=== PATIENT | male | born 1995 | race Caucasian/White ===

== ENCOUNTER 2018-10-31 21:39 | Emergency (ER) | END 2018-10-31 23:52 | disposition home or self-care (01) ==

== ENCOUNTER 2019-01-25 18:47 | Inpatient (IN) | payer BC ==
[~2019-01-25] VITALS: Ht 177.8 cm; Wt 89.4 kg
[~2019-01-25 18:47] MED LIST: IBUP800T48 PO
[2019-01-25 19:36] VITALS: Ht 177.8 cm; Wt 89.4 kg
[2019-01-25] MEDS ORDERED: SOD CHLORIDE 0.9% 1,000 ML IV STA (23:23)
[2019-01-25] MEDS ORDERED: ONDANSETRON 4 MG INJ IV STA (23:23)
[2019-01-25] MEDS ORDERED: morphine 4 MG/ML VIAL IV STA (23:23)
[2019-01-26] VITALS (14 sets, daily range): BP systolic 113–140; BP diastolic 55–70; PULSE 63–110; RESP 17–27
[2019-01-26] MEDS ORDERED: HYDROmorphONE 0.5 MG/0.5 ML SYG IV STA (03:13)
[2019-01-26] MEDS ORDERED: ONDANSETRON 4 MG INJ IV STA (03:13)
[2019-01-26] MEDS ORDERED: SOD CHLORIDE 0.9% 1,000 ML IV STA (03:13)
--- NOTE | 2019-01-26 03:15 | ERD ---
ER Documentation Chief Complaint Chief Complaint abdominal pain x 2 days HPI 23-year-old male presents with right lower quadrant abdominal pain that began yesterday at around 11 AM. No nausea or vomiting or diarrhea. No fever. Pain is getting worse and is sharp. No testicular pain. No urinary symptoms. No medications have been taken. ROS All systems reviewed and are negative except as per history of present illness. Medications Home Meds Active Scripts Ibuprofen* (Motrin*) 800 Mg Tab, 800 MG PO Q6, #30 TAB Prov:YENIFER STEVENS PA-C 10/31/18 Allergies Allergies: Coded Allergies: No Known Drug Allergies (Verified Allergy, Mild, 03/24/13) PMhx/Soc Medical and Surgical Hx: pt denies Medical Hx, pt denies Surgical Hx History of Surgery: Yes (ORAL) Anesthesia Reaction: No Hx Neurological Disorder: No Hx Respiratory Disorders: No Hx Cardiac Disorders: No Hx Psychiatric Problems: No Hx Miscellaneous Medical Probl: No Hx Alcohol Use: No Hx Substance Use: No Hx Tobacco Use: No Smoking Status: Never smoker FmHx Family History: No diabetes Physical Exam Vitals Vital Signs Date Temp Pulse Resp B/P (MAP) Pulse Ox O2 O2 Flow FiO2 Time Delivery Rate 01/25/19 125/69 23:56 (87) 01/25/19 98.6 89 18 144/86 100 19:36 (105) Physical Exam INITIAL VITAL SIGNS: Reviewed by me GENERAL: Awake, alert and oriented x 4, well appearing, nontoxic, speaking in full sentences. No acute distress HEAD: Atraumatic NECK: Supple. No masses. Full range of motion. No meningismus. No midline tenderness. RESPIRATORY: Clear to auscultation bilaterally. Symmetric chest wall rise. No wheezing or rales. No accessory muscle use. CV: Regular rate and rhythm. No murmurs, rubs, or gallops. ABDOMEN: Soft, non-distended. Nontender. Negative Sodus. Positive McBurneys point tenderness. No CVA tenderness bilaterally. No guarding. No rebound. Result Diagram: 01/25/19 2816 01/25/19 2346 Results 24 hrs Laboratory Tests Test 01/25/19 23:46 White Blood Count 14.9 10^3/ul Red Blood Count 5.09 10^6/ul Hemoglobin 14.2 g/dl Hematocrit 42.3 % Mean Corpuscular Volume 83.1 fl Mean Corpuscular Hemoglobin 27.9 pg Mean Corpuscular Hemoglobin Concent 33.6 g/dl Red Cell Distribution Width 12.1 % Platelet Count 232 10^3/UL Mean Platelet Volume 10.0 fl Immature Granulocytes % 0.700 % Neutrophils % 76.7 % Lymphocytes % 13.2 % Monocytes % 8.2 % Eosinophils % 0.9 % Basophils % 0.3 % Nucleated Red Blood Cells % 0.0 /100WBC Immature Granulocytes # 0.110 10^3/ul Neutrophils # 11.4 10^3/ul Lymphocytes # 2.0 10^3/ul Monocytes # 1.2 10^3/ul Eosinophils # 0.1 10^3/ul Basophils # 0.1 10^3/ul Nucleated Red Blood Cells # 0.0 10^3/ul Urine Color YELLOW Urine Clarity CLEAR Urine pH 7.0 Urine Specific [place] 1.013 Urine Ketones NEGATIVE mg/dL Urine Nitrite NEGATIVE mg/dL Urine Bilirubin NEGATIVE mg/dL Urine Urobilinogen NEGATIVE mg/dL Urine Leukocyte Esterase NEGATIVE Serge/ul Urine Hemoglobin NEGATIVE mg/dL Urine Glucose NEGATIVE mg/dL Urine Total Protein NEGATIVE mg/dl Sodium Level 145 mmol/L Potassium Level 4.4 mmol/L Chloride Level 99 mmol/L Carbon Dioxide Level 33 mmol/L Anion Gap 13 Blood Urea Nitrogen 11 mg/dl Creatinine 0.82 mg/dl Est Glomerular Filtrat Rate mL/min > 60 mL/min Glucose Level 103 mg/dl Calcium Level 9.4 mg/dl Total Bilirubin 0.9 mg/dl Direct Bilirubin 0.00 mg/dl Indirect Bilirubin 0.9 mg/dl Aspartate Amino Transf (AST/SGOT) 29 IU/L Alanine Aminotransferase (ALT/SGPT) 31 IU/L Alkaline Phosphatase 74 IU/L Total Protein 8.0 g/dl Albumin 4.6 g/dl Globulin 3.40 g/dl Albumin/Globulin Ratio 1.35 Lipase 28 U/L Current Medications Medications Dose Sig/[facility] Start Time Status Last (Trade) Ordered Route PRN Stop Time Admin Dose Reason Admin Sodium 1,000 ml @ Q1H STAT 01/25/19 DC 01/25/19 Chloride 1,000 mls/hr IV 23:23 23:51 01/26/19 00:22 Morphine 4 mg ONCE STAT 01/25/19 DC 01/25/19 Sulfate IV 23:23 23:56 (morphine) 01/25/19 23:25 Ondansetron 4 mg ONCE STAT 01/25/19 DC 01/25/19 HCl (Zofran IV 23: 23:55 Inj) 01/25/19 23:25 Procedures/MDM The differential diagnosis includes but is not limited to appendicitis, cholelithiasis, cholecystitis, pancreatitis, hepatitis, gastritis, peptic ulcer disease, bowel obstruction, diverticulitis, renal disease including stones, torsion, AAA, pyelonephritis, and others. Labs and CT consistent with appendicitis. He was started on Zosyn and given pain medications. Will be admitted to [facility]. Departure Diagnosis: Primary Impression: Appendicitis Condition: YUMIKO Nunez PA-C Jan 26, 2019 03:15
[2019-01-26] MEDS ORDERED: PIPER-TAZO 3.375 GM IV (PMX) 100 ML IVPB ONE (03:30)
[2019-01-26] MEDS ORDERED: BISACODYL (EC) 5 MG TAB PO PRN (06:00)
[2019-01-26] MEDS ORDERED: NACL 0.9% 3 ML SYG IV SCH (06:00)
[2019-01-26] MEDS: PIPER-TAZO 3.375 GM IV (PMX) 100 ML IVPB SCH ×3 (06:00→18:00)
[2019-01-26] MEDS ORDERED: ONDANSETRON 4 MG INJ IV PRN ×2 (06:00→19:30)
[2019-01-26] MEDS ORDERED: DOCUSATE SODIUM 100 MG CAP PO PRN (06:00)
[2019-01-26] MEDS ORDERED: ACETAMINOPHEN 325 MG TAB PO PRN ×2 (06:00→19:30)
[2019-01-26] MEDS: SOD CHLORIDE 0.9% 1,000 ML IV SCH ×2 (06:11→15:44)
[2019-01-26] MEDS: morphine 2 MG INJ IV PRN ×3 (06:12→15:55)
--- NOTE | 2019-01-26 06:38 | HP ---
Date/Time of Note Date/Time of Note DATE: 01/26/19 TIME: 06:33 Assessment/Plan VTE Prophylaxis SCD applied (from Nsg): Yes Pharmacological prophylaxis: NA/contraindicated Pharm contraindication: low risk/ambulating Lines/Catheters IV Catheter Type (from Nrsg): Saline Lock Assessment/Plan Hospital Course This is a 23-year-old male being admitted to the [facility] floor for: #1 acute appendicitis: Preliminary CT read as per the ED physician showed acute appendicitis, await official read. At the current time we will keep the patient n.p.o., IV fluid hydration with normal saline Zofran for nausea, morphine for pain. Zosyn IV every 6 hours. General surgery has already been consul eliel. #2 DVT GI prophylaxis: SCDs, no GI prophylaxis indicated Further treatment strategy will be implemented as per the clinical course. Result Diagram: 01/25/19 2346 01/25/19 2346 Results 24hrs Laboratory Tests Test 01/25/19 23:46 White Blood Count 14.9 H Red Blood Count 5.09 Hemoglobin 14.2 Hematocrit 42.3 Mean Corpuscular Volume 83.1 Mean Corpuscular Hemoglobin 27.9 L Mean Corpuscular Hemoglobin Concent 33.6 Red Cell Distribution Width 12.1 Platelet Count 232 Mean Platelet Volume 10.0 Immature Granulocytes % 0.700 H Neutrophils % 76.7 Lymphocytes % 13.2 L Monocytes % 8.2 Eosinophils % 0.9 Basophils % 0.3 Nucleated Red Blood Cells % 0.0 Immature Granulocytes # 0.110 H Neutrophils # 11.4 H Lymphocytes # 2.0 Monocytes # 1.2 H Eosinophils # 0.1 Basophils # 0.1 Nucleated Red Blood Cells # 0.0 Urine Color YELLOW Urine Clarity CLEAR Urine pH 7.0 Urine Specific [place] 1.013 Urine Ketones NEGATIVE Urine Nitrite NEGATIVE Urine Bilirubin NEGATIVE Urine Urobilinogen NEGATIVE Urine Leukocyte Esterase NEGATIVE Urine Hemoglobin NEGATIVE Urine Glucose NEGATIVE Urine Total Protein NEGATIVE Sodium Level 145 H Potassium Level 4.4 Chloride Level 99 Carbon Dioxide Level 33 H Anion Gap 13 Blood Urea Nitrogen 11 Creatinine 0.82 Est Glomerular Filtrat Rate mL/min > 60 Glucose Level 103 Calcium Level 9.4 Total Bilirubin 0.9 Direct Bilirubin 0.00 Indirect Bilirubin 0.9 Aspartate Amino Transf (AST/SGOT) 29 Alanine Aminotransferase (ALT/SGPT) 31 Alkaline Phosphatase 74 Total Protein 8.0 Albumin 4.6 Globulin 3.40 H Albumin/Globulin Ratio 1.35 Lipase 28 HPI/ROS Admit Date/Time Admit Date/Time Hx of Present Illness Chief complaint: Right lower quadrant abdominal pain times 2 days This is a 23-year-old male with no past medical history who presents with right lower quadrant abdominal pain that began Friday around 11 AM. no nausea or vomiting or diarrhea. No fever. Pain is getting worse and is sharp. No testicular pain. No urinary symptoms. No medications have been taken. Preliminary read as per the ED physician documentation showed acute appendicitis and the CT abdomen pelvis, still awaiting official read., Allergies: NKDA Medications: None ROS Const: As per HPI Eyes : No pain discharge or redness or change in visual acuity ENT: No pain, sore throat, congestion, congestion, dysphagia or discharge Respiratory: No shortness of breath, cough, sputum, wheezing, or pleuritic pain Cardiovascular: No chest pain, palpitation, PND, or edema GI : As per HPI Genitourinary: No dysuria, hematuria, flank pain , discharge or CVA tenderness Musculoskeletal: No joint pain, back pain, neck pain, restricted range of motion in neck or joints Skin: No rash, bruising or hives Neuro: No headache, dizziness, syncope, seizure, focal weakness Endocrine: No polyuria, polydipsia, temperature intolerance Psych: No hallucination, depression, anxiety or suicidal ideation PMH/Family/Social Past Medical History Medical History: no pertinent history Medications Current Medications Sodium Chloride 1,000 ml @ 100 mls/hr Q10H IV Last administered on 01/26/19at 06:11; Admin Dose 100 MLS/HR; Start 01/26/19 at 05:44 IV Flush (NS 3 ml) 3 ml PER PROTOCOL IV ; Start 01/26/19 at 06:00 Ondansetron HCl (Zofran Inj) 4 mg Q6H PRN IV NAUSEA/VOMITING; Start 01/26/19 at 06:00 Acetaminophen (Tylenol Tab) 650 mg Q6H PRN PO .PAIN 1-3 OR TEMP; Start 01/26/19 at 06:00 Morphine Sulfate (morphine) 4 mg Q4H PRN IV .SEVERE PAIN 7-10 Last administered on 01/26/19at 06:12; Admin Dose 4 MG; Start 01/26/19 at 06:00 Docusate Sodium (Colace) 100 mg Q12H PRN PO .CONSTIPATION; Start 01/26/19 at 06:00 Bisacodyl (Dulcolax) 5 mg DAILY PRN PO .CONSTIPATION; Start 01/26/19 at 06:00 Piperacillin Sod/ Tazobactam Sod 100 ml @ 200 mls/hr Q6 IVPB ; Start 01/26/19 at 06:00 Coded Allergies: No Known Drug Allergies (Verified Allergy, Mild, 03/24/13) Past Surgical History Past Surgical Hx: no surgical history Family History Significant Family History: no pertinent family hx Social History Alcohol Use: none Smoking Status: Never smoker Drug Use: none Exam/Review of Systems Vital Signs Vitals Vital Signs Date Temp Pulse Resp B/P (MAP) Pulse Ox O2 O2 Flow FiO2 Time Delivery Rate 01/26/19 98.7 79 19 121/69 100 Room Air 05:38 (86) Exam Exam General: patient is currently lying in bed in mild distress from abdominal pain HEENT: Atraumatic, normocephalic. The pupils are equal, round and reactive. Extraocular motor are intact Neck: Supple with full range of motion. No rigidity or meningismus Chest: Nontender Lungs: Clear to auscultation bilaterally no crackles rales or wheezing Heart: Normal S1-S2, Regular rhythm and rate. No murmur, S3, or S4 Abdomen: Soft , tender right lower quadrant, positive McBurney's point tenderness nondistended , bowel sounds are present. No guarding no rebound tenderness , No masses or organomegaly. No costovertebral temporal angle mass Extremities: Normal to inspection, no edema no cyanosis Neurologic: Normal mental status, speech normal, cranial nerves II through XII are intact, motor and sensory are intact, SHWETA ALTAMIRANO Jan 26, 2019 06:37
[2019-01-26] MEDS ORDERED: NEOSTIGMINE 10 MG INJ ONE (07:00)
--- NOTE | 2019-01-26 10:22 | PREAC ---
Date/Time of Note Date/Time of Note DATE: 01/26/19 TIME: 10:20 Anesthesia Eval and Record Evaluation Time Pre-Procedure Interview DATE: 01/26/19 TIME: 10:20 Age 23 Sex male NPO: 8 hrs Preoperative diagnosis acute appendicitis Planned procedure laparoscopic possible open appendectomy Past Medical History Past Medical History: Includes Cardio: Other (hx chest pain 2017, cardiac etiology was ruled out, dx with costochondritis, responded well to toradol in ER.) Surgery & Anesthesia Issues No known issue (neg pshx) Meds Anticoagulation: No Beta Edward within 24 hr: No Reason Beta Edward not given: Pt. not on B-Edward Active Scripts Ibuprofen* (Motrin*) 800 Mg Tab, 800 MG PO Q6, #30 TAB Prov:YENIFER STEVENS PA-C 10/31/18 Current Medications Sodium Chloride 1,000 ml @ 100 mls/hr Q10H IV Last administered on 01/26/19at 06:11; Admin Dose 100 MLS/HR; Start 01/26/19 at 05:44 IV Flush (NS 3 ml) 3 ml PER PROTOCOL IV ; Start 01/26/19 at 06:00 Ondansetron HCl (Zofran Inj) 4 mg Q6H PRN IV NAUSEA/VOMITING; Start 01/26/19 at 06:00 Acetaminophen (Tylenol Tab) 650 mg Q6H PRN PO .PAIN 1-3 OR TEMP; Start 01/26/19 at 06:00 Morphine Sulfate (morphine) 4 mg Q4H PRN IV .SEVERE PAIN 7-10 Last administered on 01/26/19at 09:45; Admin Dose 4 MG; Start 01/26/19 at 06:00 Docusate Sodium (Colace) 100 mg Q12H PRN PO .CONSTIPATION; Start 01/26/19 at 06:00 Bisacodyl (Dulcolax) 5 mg DAILY PRN PO .CONSTIPATION; Start 01/26/19 at 06:00 Piperacillin Sod/ Tazobactam Sod 100 ml @ 200 mls/hr Q6 IVPB ; Start 01/26/19 at 06:00 Meds reviewed: Yes Allergies Coded Allergies: No Known Drug Allergies (Verified Allergy, Mild, 03/24/13) Allergies Reviewed: Yes Labs/Studies Labs Reviewed: Reviewed by anesthesiologist Result Diagram: 01/25/19 7926 01/25/19 2346 Laboratory Tests 01/25/19 23:46 test: N/A Pre-procedure Exam Last vitals Vital Signs Date Temp Pulse Resp B/P (MAP) Pulse Ox O2 O2 Flow FiO2 Time Delivery Rate 01/26/19 97.7 70 119/70 97 Room Air 08:06 (86) 01/26/19 05:38 Airway: Adequate mouth opening, Adequate thyromental dist Mallampati: Mallampati II Teeth: Normal Lung: Normal Heart: Normal ASA Physical Status ASA physical status: 1 Emergency: E Planned Anesthetic General/MAC: ETT Nerve block: TAP (bilateral) Planned Pain Management Single shot nerve block, Parenteral pain med Pre-operative Attestations Prior to commencing anesthesia and surgery, the patient was re-evaluated, there was verification of: *The patient's identity *The results of appropriate recent lab work and preoperative vital signs *The above evaluation not changing prior to induction *Anesthetic plan, risk benefits, alternative and complications discussed with patient/family; questions answered; patient/family understands, accepts and wishes to proceed. ALO ERIC Jan 26, 2019 10:22
--- NOTE | 2019-01-26 11:38 | PN ---
Date/Time of Note Date/Time of Note DATE: 01/26/19 TIME: 11:36 Assessment/Plan VTE Prophylaxis Risk score (from Ns)>0 risk: 1 SCD applied (from Ns): Yes Pharmacological prophylaxis: NA/contraindicated Pharm contraindication: low risk/ambulating Lines/Catheters IV Catheter Type (from Nrsg): Peripheral IV Assessment/Plan Hospital Course S: still with abd pain O: Constitutional: was sleeping but arousable Head: atraumatic, normocephalic Neck: non-tender, supple Respiratory: clear to auscultation Cardiovascular: regular rate and rhythm Gastrointestinal: S/ milled rubber tender diffusely / ND / +BS Extremities: no edema, good radial pulses assessment and plan: 23-year-old male being admitted to the [facility] floor for: #1 acute appendicitis: surgical intervention planned for 3-4pm today, continue NPO, IVF and supportive care #2 DVT GI prophylaxis: SCDs, no GI prophylaxis indicated Further treatment strategy will be implemented as per the clinical course. Result Diagram: 01/25/19 2346 01/25/19 2346 Results 24hrs Laboratory Tests Test 01/25/19 23:46 White Blood Count 14.9 H Red Blood Count 5.09 Hemoglobin 14.2 Hematocrit 42.3 Mean Corpuscular Volume 83.1 Mean Corpuscular Hemoglobin 27.9 L Mean Corpuscular Hemoglobin Concent 33.6 Red Cell Distribution Width 12.1 Platelet Count 232 Mean Platelet Volume 10.0 Immature Granulocytes % 0.700 H Neutrophils % 76.7 Lymphocytes % 13.2 L Monocytes % 8.2 Eosinophils % 0.9 Basophils % 0.3 Nucleated Red Blood Cells % 0.0 Immature Granulocytes # 0.110 H Neutrophils # 11.4 H Lymphocytes # 2.0 Monocytes # 1.2 H Eosinophils # 0.1 Basophils # 0.1 Nucleated Red Blood Cells # 0.0 Urine Color YELLOW Urine Clarity CLEAR Urine pH 7.0 Urine Specific [place] 1.013 Urine Ketones NEGATIVE Urine Nitrite NEGATIVE Urine Bilirubin NEGATIVE Urine Urobilinogen NEGATIVE Urine Leukocyte Esterase NEGATIVE Urine Hemoglobin NEGATIVE Urine Glucose NEGATIVE Urine Total Protein NEGATIVE Sodium Level 145 H Potassium Level 4.4 Chloride Level 99 Carbon Dioxide Level 33 H Anion Gap 13 Blood Urea Nitrogen 11 Creatinine 0.82 Est Glomerular Filtrat Rate mL/min > 60 Glucose Level 103 Calcium Level 9.4 Total Bilirubin 0.9 Direct Bilirubin 0.00 Indirect Bilirubin 0.9 Aspartate Amino Transf (AST/SGOT) 29 Alanine Aminotransferase (ALT/SGPT) 31 Alkaline Phosphatase 74 Total Protein 8.0 Albumin 4.6 Globulin 3.40 H Albumin/Globulin Ratio 1.35 Lipase 28 Exam/Review of Systems Exam Vitals Vital Signs Date Temp Pulse Resp B/P (MAP) Pulse Ox O2 O2 Flow FiO2 Time Delivery Rate 01/26/19 97.7 70 119/70 97 Room Air 08:06 (86) 01/26/19 19 05:38 Results Results 24hrs Laboratory Tests Test 01/25/19 23:46 White Blood Count 14.9 H Red Blood Count 5.09 Hemoglobin 14.2 Hematocrit 42.3 Mean Corpuscular Volume 83.1 Mean Corpuscular Hemoglobin 27.9 L Mean Corpuscular Hemoglobin Concent 33.6 Red Cell Distribution Width 12.1 Platelet Count 232 Mean Platelet Volume 10.0 Immature Granulocytes % 0.700 H Neutrophils % 76.7 Lymphocytes % 13.2 L Monocytes % 8.2 Eosinophils % 0.9 Basophils % 0.3 Nucleated Red Blood Cells % 0.0 Immature Granulocytes # 0.110 H Neutrophils # 11.4 H Lymphocytes # 2.0 Monocytes # 1.2 H Eosinophils # 0.1 Basophils # 0.1 Nucleated Red Blood Cells # 0.0 Urine Color YELLOW Urine Clarity CLEAR Urine pH 7.0 Urine Specific [place] 1.013 Urine Ketones NEGATIVE Urine Nitrite NEGATIVE Urine Bilirubin NEGATIVE Urine Urobilinogen NEGATIVE Urine Leukocyte Esterase NEGATIVE Urine Hemoglobin NEGATIVE Urine Glucose NEGATIVE Urine Total Protein NEGATIVE Sodium Level 145 H Potassium Level 4.4 Chloride Level 99 Carbon Dioxide Level 33 H Anion Gap 13 Blood Urea Nitrogen 11 Creatinine 0.82 Est Glomerular Filtrat Rate mL/min > 60 Glucose Level 103 Calcium Level 9.4 Total Bilirubin 0.9 Direct Bilirubin 0.00 Indirect Bilirubin 0.9 Aspartate Amino Transf (AST/SGOT) 29 Alanine Aminotransferase (ALT/SGPT) 31 Alkaline Phosphatase 74 Total Protein 8.0 Albumin 4.6 Globulin 3.40 H Albumin/Globulin Ratio 1.35 Lipase 28 Medications Medication Current Medications Sodium Chloride 1,000 ml @ 100 mls/hr Q10H IV Last administered on 01/26/19at 06:11; Admin Dose 100 MLS/HR; Start 01/26/19 at 05:44 IV Flush (NS 3 ml) 3 ml PER PROTOCOL IV ; Start 01/26/19 at 06:00 Ondansetron HCl (Zofran Inj) 4 mg Q6H PRN IV NAUSEA/VOMITING; Start 01/26/19 at 06:00 Acetaminophen (Tylenol Tab) 650 mg Q6H PRN PO .PAIN 1-3 OR TEMP; Start 01/26/19 at 06:00 Morphine Sulfate (morphine) 4 mg Q4H PRN IV .SEVERE PAIN 7-10 Last administered on 01/26/19at 09:45; Admin Dose 4 MG; Start 01/26/19 at 06:00 Docusate Sodium (Colace) 100 mg Q12H PRN PO .CONSTIPATION; Start 01/26/19 at 06:00 Bisacodyl (Dulcolax) 5 mg DAILY PRN PO .CONSTIPATION; Start 01/26/19 at 06:00 Piperacillin Sod/ Tazobactam Sod 100 ml @ 200 mls/hr Q6 IVPB Last administered on 01/26/19at 11:35; Admin Dose 200 MLS/HR; Start 01/26/19 at 06:00 MAC CHAN Jan 26, 2019 11:38
--- NOTE | 2019-01-26 17:18 | CONS ---
Assessment/Plan Assessment/Plan Problems: (1) Appendicitis Status: Acute Qualifiers: Assessment/Plan (Daily) 23-year-old otherwise healthy male presents with clinical picture of acute appendicitis. Patient is consented for laparoscopic possible open appendectomy. We discussed risk and benefits we discussed possible complications and and side effects. We discussed possibility of infection abscess perforation injury to other organs bleeding or infection. Patient understands risk and benefits wishes to proceed. Consultation Date/Type/Reason Admit Date/Time Date of Consultation: Jan 26, 2019 Type of Consult Surgical Reason for Consultation Abdominal pain possible appendicitis Date/Time of Note DATE: 01/26/19 TIME: 17:13 Hx of Present Illness Otherwise healthy 23-year-old male started to experience periumbilical pain 2 days ago in the morning. The pain subsequently increased in nature and focused in the right lower quadrant. Patient was admitted through emergency room where he was found to have elevated white count up to 14,[address] scan confirmed acute appendicitis. Denies chills recent travel diarrhea urinary symptoms. Constitutional: no complaints, improved Eyes: no complaints ENT: no complaints Respiratory: no complaints Cardiovascular: no complaints Gastrointestinal: no complaints, pain, decreased appetite, nausea Genitourinary: no complaints Musculoskeletal: no complaints Skin: no complaints Neurologic: no complaints Endocrine: no complaints Lymphatic: no complaints Psychological: no complaints, nl mood/affect Immunologic: no complaints Past Medical History Medical History: no pertinent history Home Meds Active Scripts Ibuprofen* (Motrin*) 800 Mg Tab, 800 MG PO Q6, #30 TAB Prov:YENIFER STEVENS PA-C 10/31/18 Medications Current Medications Sodium Chloride 1,000 ml @ 100 mls/hr Q10H IV Last administered on 01/26/19at 06:11; Admin Dose 100 MLS/HR; Start 01/26/19 at 05:44 IV Flush (NS 3 ml) 3 ml PER PROTOCOL IV ; Start 01/26/19 at 06:00 Ondansetron HCl (Zofran Inj) 4 mg Q6H PRN IV NAUSEA/VOMITING; Start 01/26/19 at 06:00 Acetaminophen (Tylenol Tab) 650 mg Q6H PRN PO .PAIN 1-3 OR TEMP; Start 01/26/19 at 06:00 Morphine Sulfate (morphine) 4 mg Q4H PRN IV .SEVERE PAIN 7-10 Last administered on 01/26/19at 15:55; Admin Dose 4 MG; Start 01/26/19 at 06:00 Docusate Sodium (Colace) 100 mg Q12H PRN PO .CONSTIPATION; Start 01/26/19 at 06:00 Bisacodyl (Dulcolax) 5 mg DAILY PRN PO .CONSTIPATION; Start 01/26/19 at 06:00 Piperacillin Sod/ Tazobactam Sod 100 ml @ 200 mls/hr Q6 IVPB Last administered on 01/26/19at 11:35; Admin Dose 200 MLS/HR; Start 01/26/19 at 06:00 Allergies: Coded Allergies: No Known Drug Allergies (Verified Allergy, Mild, 03/24/13) Past Surgical History Past Surgical Hx: no surgical history Family History Significant Family History: no pertinent family hx Social History Alcohol Use: none Smoking Status: Never smoker Drug Use: none Exam/Review of Systems Exam Vitals Vital Signs Date Temp Pulse Resp B/P (MAP) Pulse Ox O2 O2 Flow FiO2 Time Delivery Rate 01/26/19 99.5 86 18 115/55 97 Room Air 14:43 (75) Constitutional: alert, oriented, well developed Psych: no complaints, nl mood/affect Head: normocephalic, atraumatic Eyes: nl conjunctiva, EOMI, nl lids, nl sclera, PERRL ENMT: nl external ears & nose, nl lips & teeth, nl nasal mucosa & septum Neck: supple, non-tender Respiratory: clear to auscultation, normal air movement Cardiovascular: regular rate and rhythm, nl pulses Gastrointestinal: rebound or guarding (RLQ), tender (RLQ), other (Positive Rovsing sign) Musculoskeletal: nl extremities to inspection, nl gait and stance Extremities: normal pulses Neurological: LICENSED ACUPUNCTURIST II-XII intact, nl mental status, nl speech, nl strength Skin: nl turgor; No rash or lesions Lymph: nl lymph nodes Results Result Diagram: 01/25/19 2346 01/25/19 2346 Results 24hrs Laboratory Tests Test 01/25/19 23:46 White Blood Count 14.9 H Red Blood Count 5.09 Hemoglobin 14.2 Hematocrit 42.3 Mean Corpuscular Volume 83.1 Mean Corpuscular Hemoglobin 27.9 L Mean Corpuscular Hemoglobin Concent 33.6 Red Cell Distribution Width 12.1 Platelet Count 232 Mean Platelet Volume 10.0 Immature Granulocytes % 0.700 H Neutrophils % 76.7 Lymphocytes % 13.2 L Monocytes % 8.2 Eosinophils % 0.9 Basophils % 0.3 Nucleated Red Blood Cells % 0.0 Immature Granulocytes # 0.110 H Neutrophils # 11.4 H Lymphocytes # 2.0 Monocytes # 1.2 H Eosinophils # 0.1 Basophils # 0.1 Nucleated Red Blood Cells # 0.0 Urine Color YELLOW Urine Clarity CLEAR Urine pH 7.0 Urine Specific [place] 1.013 Urine Ketones NEGATIVE Urine Nitrite NEGATIVE Urine Bilirubin NEGATIVE Urine Urobilinogen NEGATIVE Urine Leukocyte Esterase NEGATIVE Urine Hemoglobin NEGATIVE Urine Glucose NEGATIVE Urine Total Protein NEGATIVE Sodium Level 145 H Potassium Level 4.4 Chloride Level 99 Carbon Dioxide Level 33 H Anion Gap 13 Blood Urea Nitrogen 11 Creatinine 0.82 Est Glomerular Filtrat Rate mL/min > 60 Glucose Level 103 Calcium Level 9.4 Total Bilirubin 0.9 Direct Bilirubin 0.00 Indirect Bilirubin 0.9 Aspartate Amino Transf (AST/SGOT) 29 Alanine Aminotransferase (ALT/SGPT) 31 Alkaline Phosphatase 74 Total Protein 8.0 Albumin 4.6 Globulin 3.40 H Albumin/Globulin Ratio 1.35 Lipase 28 Medications Medication Current Medications Sodium Chloride 1,000 ml @ 100 mls/hr Q10H IV Last administered on 01/26/19at 06:11; Admin Dose 100 MLS/HR; Start 01/26/19 at 05:44 IV Flush (NS 3 ml) 3 ml PER PROTOCOL IV ; Start 01/26/19 at 06:00 Ondansetron HCl (Zofran Inj) 4 mg Q6H PRN IV NAUSEA/VOMITING; Start 01/26/19 at 06:00 Acetaminophen (Tylenol Tab) 650 mg Q6H PRN PO .PAIN 1-3 OR TEMP; Start 01/26/19 at 06:00 Morphine Sulfate (morphine) 4 mg Q4H PRN IV .SEVERE PAIN 7-10 Last administered on 01/26/19at 15:55; Admin Dose 4 MG; Start 01/26/19 at 06:00 Docusate Sodium (Colace) 100 mg Q12H PRN PO .CONSTIPATION; Start 01/26/19 at 06:00 Bisacodyl (Dulcolax) 5 mg DAILY PRN PO .CONSTIPATION; Start 01/26/19 at 06:00 Piperacillin Sod/ Tazobactam Sod 100 ml @ 200 mls/hr Q6 IVPB Last administered on 01/26/19at 11:35; Admin Dose 200 MLS/HR; Start 01/26/19 at 06:00 TRENA HOFFMANN MD Jan 26, 2019 17:18
[2019-01-26] MEDS ORDERED: ROCURONIUM 50 MG INJ ONE (17:40)
[2019-01-26] MEDS ORDERED: GLYCOPYRROLATE 0.4 MG INJ ONE (17:40)
[2019-01-26] MEDS ORDERED: PROPOFOL 20 ML ONE (17:40)
[2019-01-26] MEDS ORDERED: CEFAZOLIN 1 GM INJ ONE (17:40)
[2019-01-26] MEDS ORDERED: MIDAZOLAM 1 MG/ML 2 ML INJ ONE (17:42)
[2019-01-26] MEDS ORDERED: ONDANSETRON 4 MG INJ ONE (17:43)
[2019-01-26] MEDS ORDERED: FENTAnyl 50 MCG/ML VIAL ONE (17:43)
[2019-01-26] MEDS ORDERED: DEXAMETHASONE 4 MG/ML 5 ML INJ ONE (17:43)
[2019-01-26] MEDS ORDERED: BUPIVACAINE 0.5%/EPI (SDV) 30 ML INJ ONE (17:58)
[2019-01-26] MEDS ORDERED: LIDOCAINE 1% (MPF) 30 ML INJ ONE (17:58)
--- NOTE | 2019-01-26 18:53 | PAC ---
Date/Time of Note Date/Time of Note DATE: 01/26/19 TIME: 18:53 Post-Anesthesia Notes Post-Anesthesia Note Last documented vital signs Vital Signs Date Temp Pulse Resp B/P (MAP) Pulse Ox O2 O2 Flow FiO2 Time Delivery Rate 01/26/19 99.5 86 18 115/55 97 Room Air 14:43 (75) Activity: WNL Respiratory function: WNL Cardiovascular function: WNL Mental status: Baseline Pain reasonably controlled: Yes Hydration appropriate: Yes Nausea/Vomiting absent: Yes Matty Gamez M.D. Jan 26, 2019 18:53
--- NOTE | 2019-01-26 19:16 | OPR ---
Date/Time of Note Date/Time of Note DATE: 01/26/19 TIME: 19:13 Operative Report Procedure Date: Jan 26, 2019 Preoperative Diagnosis Acute appendicitis Postoperative Diagnosis Acute appendicitis Operation/Procedure Performed Laparoscopic appendectomy Surgeon see signature line Caramel Cutter Machine None Anesthesia Type: general Estimated Blood Loss: minimal Transfusion none Specimen Appendix Grafts/Implants none Complications none Pt Condition Post Procedure: stable Indications Acute appendicitis Procedure Description Patient was brought to the operating room positioned supine general endotracheal anesthesia was induced. The abdomen was prepped and draped in usual sterile patient. Patient was on antibiotics previously. Veress needle was placed in the left subcostal position and the abdomen was insufflated with CO2 up to 15 mmHg. 5 mm trocars were placed in the midline went just below the umbilicus the other one B midway between the umbilicus and the pubis. A 12 mm trocar was placed above the pubic hairline. The appendix was dissected off the omentum. A window was created that measure of the appendix close to the base. The appendix was divided using 35 mm vascular endoscopic stapler. The mesentery was divided using the same stapler with white loads. Hemostasis was confirmed. After that the appendix was placed in a specimen bag and retrieved through the 12 mm trocar site. Abdomen was desufflated all the trocars were removed. A 12 mm trocar was closed in 2 layers using 0 Vicryl for the fascia and 3-0 Monocryl to the skin. The 5 mm trocars were closed using 4-0 Monocryl to the skin. Instrument and sponge counts were correct x2. Patient was extubated transferred to recovery room in stable condition TRENA HOFFMANN MD Jan 26, 2019 19:16
[2019-01-26] MEDS ORDERED: KETOROLAC 30 MG INJ IV PRN (19:30)
[2019-01-26] MEDS ORDERED: IBUPROFEN 600 MG TAB PO PRN (19:30)
[2019-01-26] MEDS ORDERED: DIPHENHYDRAMINE 50 MG INJ IV PRN (19:30)
[2019-01-26] MEDS ORDERED: HYDROCODONE/APAP (5/325) TAB PO PRN (19:30)
[2019-01-26] MEDS: D5W-0.45 NACL + KCL 20 MEQ 1,000 ML IV SCH (20:04)
[2019-01-27] MEDS: SOD CHLORIDE 0.9% 1,000 ML IV SCH ×2 (01:03→11:32)
[2019-01-27] MEDS: PIPER-TAZO 3.375 GM IV (PMX) 100 ML IVPB SCH ×3 (01:09→12:51)
[2019-01-27 02:39] VITALS: BP 122/64; PULSE 85; RESP 18
[2019-01-27] MEDS: D5W-0.45 NACL + KCL 20 MEQ 1,000 ML IV SCH ×2 (05:00→11:32)
[2019-01-27 08:02] VITALS: BP 107/56; PULSE 88; RESP 18
[2019-01-27 11:39] VITALS: BP 108/57; PULSE 75; RESP 18
--- NOTE | 2019-01-27 13:26 | PDOCDIS ---
Discharge Instructions DIAGNOSIS Discharge Diagnosis Acute appendicitis CONDITION [id number] Patient Condition: Zsswy0s Good HOME CARE INSTRUCTIONS: [id number] Diet Instructions: [id number] Regular ACTIVITY: [id number] Activity Restrictions: [id number] Avoid heavy lifting (No heavy lifting >20 lbs for 2-4 weeks) FOLLOW UP/APPOINTMENTS Follow-up Plan 1. Keep surgical incisions clean. No baths, pools, or other immersion in water. Showers are okay, pat dry afterwards. 2. Take Ibuprofen or acetaminophen for pain. 3. Make an appointment with Dr. Ayan Finnegan in 2 weeks to check your incisions. Address: [address] [place] [address] [address] [address] JILLIAN AMBRIZ MD Jan 27, 2019 13:26
--- NOTE | 2019-01-27 15:56 | DS ---
Date/Time of Note Date/Time of Note DATE: 01/27/19 TIME: 15:53 Discharge Summary Admission/Discharge Info Admit Date/Time Jan 26, 2019 at 05:31 Discharge Date/Time Jan 27, 2019 at 14:10 Discharge Diagnosis Acute appendicitis Consults Ayan Finnegan MD, general surgery Procedures Laproscopic appendectomy 01/26/19 Hx of Present Illness Chief complaint: Right lower quadrant abdominal pain times 2 days This is a 23-year-old male with no past medical history who presents with right lower quadrant abdominal pain that began Friday around 11 AM. no nausea or vomiting or diarrhea. No fever. Pain is getting worse and is sharp. No testicular pain. No urinary symptoms. No medications have been taken. Preliminary read as per the ED physician documentation showed acute appendicitis and the CT abdomen pelvis, still awaiting official read., Allergies: NKDA Medications: None Hospital Course Patient was taken to OR by Dr. Finnegan. Had laproscopic appendectomy. Uneventful postoperative course; requiring minimal analgesia. Able to ambulate, tolerating regular diet, breathing room air. Discharged to see Dr. Finnegan outpatient. Home Meds Active Scripts Ibuprofen* (Motrin*) 800 Mg Tab, 800 MG PO Q6, #30 TAB Prov:YENIFER STEVENS PA-C 10/31/18 Follow-up Plan 1. Keep surgical incisions clean. No baths, pools, or other immersion in water. Showers are okay, pat dry afterwards. 2. Take Ibuprofen or acetaminophen for pain. 3. Make an appointment with Dr. Ayan Finnegan in 2 weeks to check your incisions. Address: [address] [place], [place] [id number], [place] [id number] Primary Care Provider Not On Staff Doctor Time spent on discharge: > 30 minutes Pending Labs Laboratory Tests Test 01/27/19 05:21 White Blood Count 10.7 10^3/ul (4.8-10.8) Red Blood Count 4.85 10^6/ul (4.70-6.10) Hemoglobin 13.5 g/dl (14.0-18.0) Hematocrit 40.3 % (42.0-52.0) Mean Corpuscular Volume 83.1 fl (82.0-101.0) Mean Corpuscular Hemoglobin 27.8 pg (29.0-33.0) Mean Corpuscular Hemoglobin Concent 33.5 g/dl (32.0-37.0) Red Cell Distribution Width 11.9 % (11.5-14.5) Platelet Count 240 10^3/UL (140-415) Mean Platelet Volume 10.1 fl (7.4-10.4) Immature Granulocytes % 0.500 % (0.001-0.429) Neutrophils % 92.4 % (39.0-77.0) Lymphocytes % 5.1 % (15.0-51.0) Monocytes % 1.9 % (0.0-11.0) Eosinophils % 0.0 % (0.0-7.0) Basophils % 0.1 % (0.0-2.0) Nucleated Red Blood Cells % 0.0 /100WBC (0.0-0.0) Immature Granulocytes # 0.050 10^3/ul (0.0-0.031) Neutrophils # 9.9 10^3/ul (1.6-7.5) Lymphocytes # 0.6 10^3/ul (0.8-2.9) Monocytes # 0.2 10^3/ul (0.3-0.9) Eosinophils # 0.0 10^3/ul (0.0-0.5) Basophils # 0.0 10^3/ul (0.0-0.1) Nucleated Red Blood Cells # 0.0 10^3/ul (0.0-0.0) Sodium Level 140 mmol/L (135-144) Potassium Level 4.2 mmol/L (3.5-5.1) Chloride Level 101 mmol/L (97-110) Carbon Dioxide Level 27 mmol/L (21-31) Anion Gap 12 (5-13) Blood Urea Nitrogen 10 mg/dl (7-20) Creatinine 0.80 mg/dl (0.61-1.24) Est Glomerular Filtrat Rate mL/min > 60 mL/min (>60) Glucose Level 159 mg/dl (70-220) Calcium Level 9.0 mg/dl (8.4-10.2) Magnesium Level 2.1 mg/dl (1.7-2.5) Total Bilirubin 1.3 mg/dl (0.2-1.3) Direct Bilirubin 0.00 mg/dl (0.00-0.20) Indirect Bilirubin 1.3 mg/dl (0-1.1) Aspartate Amino Transf (AST/SGOT) 23 IU/L (15-46) Alanine Aminotransferase (ALT/SGPT) 24 IU/L (13-69) Alkaline Phosphatase 62 IU/L (42-121) Total Protein 7.0 g/dl (6.1-8.1) Albumin 4.0 g/dl (3.3-4.9) Globulin 3.00 g/dl (1.3-3.2) Albumin/Globulin Ratio 1.33 JILLIAN AMBRIZ MD Jan 27, 2019 15:55
== END 2019-01-27 14:10 | disposition home or self-care (01) | DRG 343 ==
LOC: FTE 18:47 → MS3 01-26 05:31 → 2NE 01-27 09:15
PROVIDERS: ADMIT Family Medicine; ATTEND Family Medicine
PROC: 0DTJ4ZZ Resection of Appendix, Percutaneous Endoscopic Approach (ICD-10-PCS; principal; 2019-01-26 15:00)
DX: K35.80 Unspecified acute appendicitis (principal)
CPT/HCPCS: 36415; 74176; 80053; 81003; 83690; 83735; 85025; 88304; 96374; 96375; 96376; J0690; J1100; J1170; J1885; J2250; J2270; J2405; J2543; J2710; J3010; J3480; J7030